=== PATIENT | female | born 1930 | race Caucasian/White ===

== ENCOUNTER 2016-08-16 09:45 | Inpatient (IN) | payer OTHER, MEDICAID ==
[~2016-08-16] VITALS: Ht 154.9 cm; Wt 77.1 kg
[2016-08-16 09:45] VITALS: BP 214/84; PULSE 87; RESP 20; TEMP 97.2; O2SAT 97
--- NOTE | 2016-08-16 09:50 | NUR ---
Pt placed to ER bed 03 and to gown. Pt report given to JAIME Mcarthur.
--- NOTE | 2016-08-16 09:50 | NUR ---
According to daughter, pt has been auditory/visual hallucinating past few days, lives at home. Denies fever, +headache. Heart transplant 4 months ago. Addendum: 08/16/16 at 1021 by SDEDSTC Not a heart transplant, heart valve replacement
--- NOTE | 2016-08-16 09:55 | NUR ---
Dr. Ayala at bedside to assess pt.
[2016-08-16] MEDS ORDERED: METOPROLOL TARTRATE 25 MG TABLET ONE (10:13)
[2016-08-16] MEDS ORDERED: METOPROLOL SUCCINATE 50 MG TAB.SR.24H (TOPROL XL) PO ONE (10:15)
[2016-08-16] MEDS ORDERED: ASPI-1063 PO (10:21)
[2016-08-16] MEDS ORDERED: LEVE500T13 PO (10:21)
[2016-08-16] MEDS ORDERED: DULO60CA41 PO (10:21)
[2016-08-16] MEDS ORDERED: TRAM50TA92 PO (10:21)
[2016-08-16] MEDS ORDERED: LIP20 PO (10:21)
[2016-08-16] MEDS ORDERED: MECL12.584 PO (10:21)
[2016-08-16] MEDS ORDERED: BENA10TA2 PO (10:21)
[2016-08-16] MEDS ORDERED: LYR50 PO (10:21)
[2016-08-16] MEDS ORDERED: METO-442 PO (10:21)
[2016-08-16] MEDS ORDERED: HYDR-1189 PO (10:21)
[2016-08-16] MEDS ORDERED: TYC3 PO (10:21)
--- NOTE | 2016-08-16 10:21 | NUR ---
Medication reconciliation completed as per list provided by daughter.
--- NOTE | 2016-08-16 10:22 | NUR ---
Phleb at bedside for blood draw using 2 pt idenitifers
[2016-08-16 10:41] LABS: BASOPHILS % (AUTO) 0.4 % (0.0-2.0); EOSINOPHILS % (AUTO) 0.5 % (0.0-4.0); HEMATOCRIT 34.3 % (36-48); HEMOGLOBIN 11.4 g/dL (12.0-16.0); LYMPHOCYTES # (AUTO) 1.7 K/uL (1.0-5.5); LYMPHOCYTES % (AUTO) 32.2 % (20.5-51.5); MEAN CORPUSCULAR HEMOGLOBIN 29 pg (27-31); MEAN CORPUSCULAR HGB CONC 33 % (32-36); MEAN CORPUSCULAR VOLUME 86 fL (79.0-98.0); MONOCYTES # (AUTO) 0.2 K/uL (0.0-1.0); MONOCYTES % (AUTO) 4.5 % (1.7-9.3); NEUTROPHILS # (AUTO) 3.3 K/uL (1.8-7.7); NEUTROPHILS % (AUTO) 62.4 % (40.0-70.0); PLATELET COUNT (AUTO) 139 K/uL (130-430); RED BLOOD CELL COUNT(AUTO) 3.98 MIL/uL (4.2-6.2); RED CELL DISTRIBUTION WIDTH 12.4 % (9.0-15.0); WHITE BLOOD COUNT (AUTO) 5.2 K/uL (4.8-10.8)
--- NOTE | 2016-08-16 10:45 | NUR ---
Back from CT via jasmina pt tolerated well.
[2016-08-16 10:55] LABS: PROTHROMBIN TIME 10.9 SECS (9.5-12.5)
[2016-08-16 10:58] LABS: ANION GAP 2 (5-15); CALCIUM 9.7 mg/dL (8.4-11.0); CHLORIDE 108 mmol/L (98-107); CREATININE 0.76 mg/dL (0.55-1.30); GLUCOSE 186 mg/dL (70-99); SODIUM SERUM 142 mmol/L (136-145); UREA NITROGEN, BLOOD 26 mg/dL (8-21)
[2016-08-16 11:03] LABS: ALANINE AMINOTRANSFERASE 49 U/L (12-78); ALBUMIN 3.3 g/dL (3.4-4.8); ASPARTATE AMINOTRANSFERASE 30 U/L (10-37); TOTAL BILIRUBIN 0.4 mg/dL (0.0-1.0); TOTAL PROTEIN, SERUM 7.2 g/dL (6.4-8.3)
--- NOTE | 2016-08-16 11:15 | NUR ---
# 14 FR In and Out catheter with use of sterile technique. Immediate return of 125 ml clear yellow urine noted. Urine sample collected and sent to lab. Pt tolerated procedure well. Patient unable to toilet self at this time.
[2016-08-16 11:45] LABS: BILIRUBIN,URINE NEGATIVE (NEGATIVE); BLOOD, URINE NEGATIVE (NEGATIVE); CLARITY/URINE SL HAZY (CLEAR); COLOR,URINE YELLOW (YELLOW); GLUCOSE,URINE NEGATIVE (NEGATIVE); KETONES,URINE TRACE (NEGATIVE); LEUKOCYTE ESTERASE ,URINE NEGATIVE (NEGATIVE); NITRITE, URINE NEGATIVE (NEGATIVE); PH,URINE 6.5 (5.0-8.0); PROTEIN URINE 1+ (NEGATIVE); UROBILINOGEN,URINE 0.2 (0.2-1.0)
[2016-08-16 11:59] LABS: BACTERIA,URINE RARE /HPF (None Seen); MUCUS,URINE 1+ /LPF (None Seen); RBC,URINE 0-3 /HPF (0-3); WBC,URINE 0-3 /HPF (0-3)
--- NOTE | 2016-08-16 12:12 | NUR ---
Patient will be admitted to care of Dr. Piña. Admitted to tele unit. Will go to room 132-A. Summary report printed. Report given to RN at bedside. Transfer to tele via ACLS protocol. Licensed nurse present. IV present no signs or symptoms of infiltration.
[2016-08-16] MEDS ORDERED: HYDROcodone/ACETAMIN 5-325 MG TAB (NORCO/ VICODIN) PO PRN (12:15)
--- NOTE | 2016-08-16 12:29 | NUR ---
Admission Note Received patient from ER with diagnosis of Metabolic Encephalopathy. Initial Plan of Care discussed-patient verbalized understanding. Family at bedside. Oriented to room, call light, pain management and safety.
[2016-08-16 12:30] VITALS: BP 143/105; PULSE 75; RESP 19; TEMP 98; O2SAT 97
[2016-08-16 12:59] VITALS: BP 143/105; PULSE 75; RESP 18; TEMP 98; O2SAT 97
[2016-08-16] MEDS ORDERED: DOCUSATE SODIUM 100 MG CAPSULE PO PRN (15:45)
[2016-08-16] MEDS ORDERED: ONDANSETRON HCL 4 MG/2 ML VIAL IVP PRN (15:45)
[2016-08-16] MEDS ORDERED: ACETAMINOPHEN 325 MG TABLET PO PRN (15:45)
[2016-08-16] MEDS ORDERED: cloNIDine HCL 0.1 MG TABLET PO PRN (15:45)
[2016-08-16] MEDS ORDERED: MAGNESIUM SULFATE 50 ML IV PRN (15:45)
[2016-08-16] MEDS ORDERED: POTASSIUM CHLORIDE 10 MEQ TAB.PRT.SR PO PRN (15:45)
[2016-08-16] MEDS ORDERED: MORPHINE 2 MG/ML INJ. SYRINGE IVP PRN (15:45)
[2016-08-16 16:00] VITALS: BP 166/79; PULSE 70; RESP 19; TEMP 97.4; O2SAT 97
--- NOTE | 2016-08-16 16:00 | NUR ---
Patient IV started #22 guage right upper arm, and flushes without resistance. Theo Huff RN
[2016-08-16] MEDS ORDERED: HYDROCHLOROTHIAZIDE 25 MG TABLET (HCTZ) PO ONE (16:45)
[2016-08-16] MEDS: PREGABALIN 25 MG CAPSULE (LYRICA) PO SCH ×2 (19:26→20:20)
[2016-08-16] MEDS: traMADol HCL HCL 50 MG TABLET (ULTRAM) PO SCH ×2 (19:27→21:00)
[2016-08-16] MEDS: NACL 0.9% 1,000 ML IV SCH (19:28)
--- NOTE | 2016-08-16 19:40 | NUR ---
NOTES; SEEN PT IN BED. AWAKE, ORIENTED TO NAME ONLY. NO ACUTE DISTRESS NOTED. BP FOUND TO FE HIGH, BP 183/69, HR 75. WILL MEDICATE PT WITH SCHEDULED LOPRESSOR. PT IS AFEBRILE. ORDERED IVF INFUSING WELL ON THE RT UPPER ARM, PATENT. NO SIGNS OF INFECTION OR INFILTRATION NOTED. BRUISE TO THE LEFT ARM NOTED. FAMILY AT BEDSIDE WITH GOOD SUPPORT. PT DENIES ANY PAIN AT THIS TIME. INSTRUCTED PT OM THE USE OF CALL LIGHT. PT NODDED YES;. BED LOCKED AND IN LOW POSITION, SIDE RAILS UP X3, BED ALARM ON. CALL LIGHT AND BEDSIDE TABLE WITHIN REACH. DIRECT OBSERVER AT BEDSIDE AT ALL TIMES, WILL CONTINUE TO MONITOR.
[2016-08-16] MEDS: METOPROLOL TARTRATE 50 MG TABLET PO SCH (20:19)
[2016-08-16] MEDS: HEPARIN SODIUM,PORCINE 5000 UNITS/ML VIAL SUBCUT SCH (20:19)
[2016-08-16] MEDS: ZOLPIDEM TARTRATE 5 MG TABLET PO PRN (20:20)
[2016-08-16] MEDS: levETIRAcetam 500 MG TABLET PO SCH (20:20)
--- NOTE | 2016-08-16 20:25 | NUR ---
NOTES; SCHEDULED LOPRESSOR 50MG PO ADMINISTERED ALONG WITH OTHER SCHEDULED PO MEDICATION AND AMBIEN 10MG PO FOR INSOMNIA.
--- NOTE | 2016-08-16 21:30 | NUR ---
NOTES; RECHECKED BP 140/79, HR 74. WILL CONTINUE TO MONITOR.
--- NOTE | 2016-08-16 22:30 | NUR ---
NOTES; ASSISTED TO BEDSIDE COMMODE. PT VOIDED IN BED AND ALL THE WAY TO BEDSIDE COMMODE. ASSISTED BACK TO BED. GOWN AND BED LINEN CHANGED. RADHA CARE PROVIDED. WILL CONTINUE TO MONITOR. DIRECT OBSERVER AT BEDSIDE.
[2016-08-17 00:14] VITALS: BP 145/77; PULSE 72; RESP 18; TEMP 97.2; O2SAT 90
--- NOTE | 2016-08-17 00:52 | NUR ---
NOTES; APPEARED TO BE SLEEPING, YES CLOSED. RESPIRATION EVEN AN UNLABORED. SAFETY MEASURES IN PROGRESS. WILL CONTINUE TO MONITOR.
--- NOTE | 2016-08-17 01:30 | NUR ---
NOTES; INCONTINENT OF URINE. PERICARE PROVIDED. DENIES ANY PAIN AT THIS TIME. SAFETY MEASURES IN PROGRESS. DIRECT OBSERVER AT BEDSIDE.
--- NOTE | 2016-08-17 03:30 | NUR ---
NOTES; APPEARED TO BE SLEEPING, EYES CLOSED. RESPIRATION EVEN AN UNLABORED. SAFETY MEASURES IN PROGRESS. WILL CONTINUE TO MONITOR.
[2016-08-17 04:12] VITALS: BP 154/59; PULSE 84; RESP 18; TEMP 97.2; O2SAT 95
--- NOTE | 2016-08-17 05:00 | NUR ---
NOTES; INCONTINENT OF URINE. RADHA CARE PROVIDED. DENIES ANY PAIN AT THIS TIME. SAFETY MEASURES IN PROGRESS. DIRECT OBSERVER AT BEDSIDE.
[2016-08-17] MEDS: NACL 0.9% 1,000 ML IV SCH ×2 (05:34→20:33)
[2016-08-17 05:52] LABS: CHLORIDE 107 mmol/L (98-107); CREATININE 0.67 mg/dL (0.55-1.30); GLUCOSE 151 mg/dL (70-99); POTASSIUM 3.7 mmol/L (3.5-5.1); SODIUM SERUM 140 mmol/L (136-145); UREA NITROGEN, BLOOD 18 mg/dL (8-21)
[2016-08-17 06:07] LABS: BASOPHILS % (AUTO) 0.3 % (0.0-2.0); EOSINOPHILS # (AUTO) 0.1 K/uL (0.0-0.4); EOSINOPHILS % (AUTO) 1.8 % (0.0-4.0); HEMATOCRIT 32.2 % (36-48); HEMOGLOBIN 10.4 g/dL (12.0-16.0); LYMPHOCYTES # (AUTO) 2.1 K/uL (1.0-5.5); LYMPHOCYTES % (AUTO) 51.7 % (20.5-51.5); MEAN CORPUSCULAR HEMOGLOBIN 28 pg (27-31); MEAN CORPUSCULAR HGB CONC 33 % (32-36); MEAN CORPUSCULAR VOLUME 87 fL (79.0-98.0); MONOCYTES # (AUTO) 0.3 K/uL (0.0-1.0); MONOCYTES % (AUTO) 6.9 % (1.7-9.3); NEUTROPHILS # (AUTO) 1.7 K/uL (1.8-7.7); NEUTROPHILS % (AUTO) 39.3 % (40.0-70.0); PLATELET COUNT (AUTO) 133 K/uL (130-430); RED BLOOD CELL COUNT(AUTO) 3.68 MIL/uL (4.2-6.2); RED CELL DISTRIBUTION WIDTH 12.4 % (9.0-15.0); WHITE BLOOD COUNT (AUTO) 4.2 K/uL (4.8-10.8)
[2016-08-17 06:23] LABS: ANION GAP < 3 (5-15)
--- NOTE | 2016-08-17 06:53 | NUR ---
NOTES; APPEARED TO BE SLEEPING. EYES CLOSED. EASILY AROUSED. NO ACUTE DISTRESS NOTED. IVF INFUSING WELL. ALL NEEDS ATTENDED. SAFETY MEASURES IN PROGRESS. DIRECT OBSERVER AT BEDSIDE.
--- NOTE | 2016-08-17 07:00 | NUR ---
NOTES; AWAKE, NAGAT SHAREPOINT ANALYST ASSISTED WITH BED PAIN. VOIDED FREELY.
--- NOTE | 2016-08-17 07:14 | NUR ---
NOTES; PT C/O 710 LEFT RIB PAIN. NORCO 1 TAB PO ADMINISTERED FOR 10 PAIN. WILL ENDORSE TO IN COMING NURSE.
--- NOTE | 2016-08-17 07:34 | NUR ---
CALLED ATTENDING MD DR LEWIS, DR PURCELL ENROBING MACHINE CORDER, RE: CHANGE OF CONDITION. SPOKE TO YELENA
--- NOTE | 2016-08-17 07:37 | NUR ---
NOTES; DR LEWIS CALLED TTO INFORM ABOUT PT SUDDEN C/O LEFT RIB, UNDER BREAST PAIN. DR PURCELL FIRE CHIEF FOR . SPOKE WITH DR. PURCELL AND INFORMED ABOUT PT C/O PAIN. DR. PURCELL GAVE ORDERS FOR MORPHINE 2MG IV FOR 7-10 PAIN LEVEL AND NORCO 5-325MG 1 TAB PO FOR 4-6 PAIN LEVEL. UNABLE TO PLACE ORDERS BECAUSE, DR PURCELL DOES NOT HAVE PRIVILEGES IN THIS HOSPITAL. CHARGE NURSE AND SHAISTA VASQUEZ INFORMED.
--- NOTE | 2016-08-17 07:41 | NUR ---
CALLED DR LEWIS AGAIN , RE: DR PURCELL DOES NOT HAVE PRIVILEGES . SPOKE TO YELENA
[2016-08-17 07:54] VITALS: BP 179/90; PULSE 75; RESP 18; TEMP 97.8; O2SAT 92
--- NOTE | 2016-08-17 08:00 | NUR ---
AM INITIAL NOTES PT AAOX3 PORTUGUESE SPEAKING ONLY WITH EPISODES OF CONFUSION AND FORGETFULNESS. COMPLAINTS OF LEFT UPPER ABDOMINAL PAIN. PATIENT WAS ALREADY MEDICATED WITH NORCO. NO SOB, DIFFICULTY BREATHING OR DISTRESS NOTED. SACK REPAIRER IN PLACE. IV TO LEFT UPPER ARM CAME OFF. NEW IV STARTED TO RIGHT INDEX FINGER #22G. SAFETY AND FALL PRECAUTIONS ENFORCED WITH BED ALARM ARMED AND CLOSE TO NURSE'S STATION. DIRECT OBSERVER INSIDE ROOM. WILL MONITOR.
--- NOTE | 2016-08-17 08:05 | NUR ---
DR. JOSHUA HARDY DOING ROUNDS AND ASSESSED PATIENT.
[2016-08-17] MEDS ORDERED: BENAZEPRIL HCL 10 MG TABLET (LOTENSIN) PO SCH (09:00)
[2016-08-17] MEDS ORDERED: HYDROCHLOROTHIAZIDE 25 MG TABLET (HCTZ) PO SCH (09:00)
[2016-08-17] MEDS: ATORVASTATIN 20 MG TABLET PO SCH (09:30)
[2016-08-17] MEDS: ASPIRIN 81 MG TABLET(ECOTRIN) PO SCH (09:31)
[2016-08-17] MEDS: DULoxetine HCL 30 MG CAPSULE.DR (CYMBALTA) PO SCH (09:31)
[2016-08-17] MEDS: PREGABALIN 25 MG CAPSULE (LYRICA) PO SCH ×3 (09:31→20:26)
[2016-08-17] MEDS: levETIRAcetam 500 MG TABLET PO SCH ×2 (09:31→20:26)
[2016-08-17] MEDS: BENAZEPRIL HCL 10 MG TABLET (LOTENSIN) PO SCH ×2 (09:32→20:27)
[2016-08-17] MEDS: traMADol HCL HCL 50 MG TABLET (ULTRAM) PO SCH ×3 (09:34→20:26)
[2016-08-17] MEDS: HYDROCHLOROTHIAZIDE 25 MG TABLET (HCTZ) PO SCH (09:36)
[2016-08-17] MEDS: METOPROLOL TARTRATE 50 MG TABLET PO SCH ×2 (09:37→20:26)
[2016-08-17] MEDS: HEPARIN SODIUM,PORCINE 5000 UNITS/ML VIAL SUBCUT SCH ×2 (09:40→20:29)
--- NOTE | 2016-08-17 09:50 | NUR ---
DR. SUDHA HARDY INSIDE ROOM ASSESSING PATIENT. FAMILY AT BEDSIDE.
--- NOTE | 2016-08-17 09:57 | NUR ---
NEURO CONSULT Spoke with Irish regarding request for consultation with Dr. Montalvo ([phone]) for reason: worsening confusion, dementia.
--- NOTE | 2016-08-17 10:00 | NUR ---
ROUNDS PT AWAKE RESTING IN BED WITH FAMILY AT BEDSIDE. NO COMPLAINTS OF PAIN OR DISCOMFORT AT THIS TIME. NO DISTRESS NOTED. AM CARE AND BED BATH DONE. KEPT PT COMFORTABLE. WILL CONTINUE TO MONITOR. DIRECT OBSERVER INSIDE ROOM.
--- NOTE | 2016-08-17 10:03 | NUR ---
CALLED PSYCH CONSULT TO DR RAYA, DR HAQ LARRIMAN, RE: HALLUCINATIONS. SPOKE TO HUSSAIN
--- NOTE | 2016-08-17 11:34 | NUR ---
DR. XIOMARA HARDY INSIDE ROOM ASSESSING PATIENT. AT BEDSIDE.
--- NOTE | 2016-08-17 12:00 | NUR ---
LUNCH PT EATING LUNCH. NO COMPLAINTS OF PAIN OR DISCOMFORT. NO DISTRESS NOTED. DIRECT OBSERVER INSIDE ROOM.
[2016-08-17 12:45] VITALS: BP 128/67; PULSE 92; RESP 20; TEMP 97.2; O2SAT 95
--- NOTE | 2016-08-17 13:37 | NUR ---
PT HAVING EEG AT THIS TIME.
--- NOTE | 2016-08-17 14:45 | NUR ---
ROUNDS PT ASLEEP. NO SIGNS OF FACIAL GRIMACING FOR PAIN OR DISCOMFORT. NO DISTRESS NOTED. WILL CONTINUE TO MONITOR. DIRECT OBSERVER INSIDE ROOM.
--- NOTE | 2016-08-17 16:07 | NUR ---
Nutrition Update Rick Scale 18 noted Pt was admitted for metabolic encephalopathy Diet: cardiac BMI: 32.8 kg/m2 RD to follow up per nutrition care standards.
[2016-08-17 16:20] VITALS: BP 150/67; PULSE 71; RESP 20; TEMP 98.1; O2SAT 91
--- NOTE | 2016-08-17 17:00 | NUR ---
ROUNDS PT AWAKE WITH NO COMPLAINTS OF PAIN OR DISCOMFORT. NO DISTRESS NOTED. ASSISTED TO BSC. WEAKNESS TO BILATERAL LOWER EXTREMITIES NOTED. BACK TO BED AND KEPT COMFORTABLE. SAFETY AND FALL RISK PRECAUTIONS ENFORCED. SEIZURE PRECAUTIONS ENFORCED. DIRECT OBSERVER INSIDE ROOM. WILL CONTINUE TO MONITOR.
--- NOTE | 2016-08-17 18:30 | NUR ---
CLOSING NOTES PT AWAKE RESTING IN BED WITH AT BEDSIDE. PT HAS EPISODES OF CONFUSION AND TRIES TO GET OUT OF BED WHEN SHE WANTS TO URINATE AND USE BSC. NO COMPLAINTS OF PAIN OR DISCOMFORT. NO DISTRESS NOTED. WILL ENDORSE CARE TO INCOMING NURSE. WILL ENDORSE CARE TO INCOMING NURSE.
[2016-08-17 19:32] VITALS: BP 128/62; PULSE 74; RESP 18; TEMP 99.2; O2SAT 93
--- NOTE | 2016-08-17 19:35 | NUR ---
NOTES; SEEN PT IN BED. AWAKE, ORIENTED TO NAME ONLY. CONFUSED. REORIENTED PT TO PLACE, TIME, ROOM AND SURROUNDINGS. NO ACUTE DISTRESS NOTED. VITAL SIGNS STABLE, AFEBRILE. ORDERED IVF INFUSING WELL ON THE RT INDEX FINGER, PATENT. NO SIGNS OF INFECTION OR INFILTRATION NOTED. BRUISE TO THE LEFT ARM NOTED. FAMILY AT BEDSIDE WITH GOOD SUPPORT. PT DENIES ANY PAIN AT THIS TIME. INSTRUCTED PT ON THE USE OF CALL LIGHT. PT NODDED YES; BED LOCKED AND IN LOW POSITION, SIDE RAILS UP X3, BED ALARM ON. CALL LIGHT AND BEDSIDE TABLE WITHIN REACH. DIRECT OBSERVER AT BEDSIDE AT ALL TIMES, WILL CONTINUE TO MONITOR.
--- NOTE | 2016-08-17 19:45 | NUR ---
NOTES; PT IS TAKEN TO RADIOLOGY FOR CT SCAN. PT TRANSPORTED VIA BED DUE TO WEAKNESS. PT WAS ACCOMPANIED BY LOCO Escobedo RN, AND SUPERVISOR PHOTOCOMPOSITION.
--- NOTE | 2016-08-17 20:06 | NUR ---
Notes; Pt is back from radiology. Pt is in stable condition.
--- NOTE | 2016-08-17 20:39 | NUR ---
NOTES; SCHEDULED PO MEDICATION ADMINISTERED. PT TOLERATED MEDS WELL. WILL CONTINUE TO MONITOR.
--- NOTE | 2016-08-17 22:02 | NUR ---
PSYCH CONSULT FOLLOW UP 2ND CALL FOR CONSULT W/ DR RAYA WAS CALLED, RE HALLUCINATION MIGUE MENSAH, "DR JOE IS O/C"
[2016-08-17] MEDS: ZOLPIDEM TARTRATE 5 MG TABLET PO PRN (22:19)
--- NOTE | 2016-08-17 22:20 | NUR ---
NOTES; AMBIEN 10MG PO ADMINISTERED FOR INSOMNIA.
--- NOTE | 2016-08-17 22:22 | NUR ---
NOTES; SPOKE WITH DR. HOLLY HOME ENERGY CONSULTANT SUPERVISOR FOR [employer] REGARDING PSYCH CONSULT. UPDATED DR HOLLY WITH PT DX AND STATUS. DR HOLLY STATED " OK WE WILL SEE PT TOMORROW". CHARGE NURSE AND RN NOTIFIED.
[2016-08-18] VITALS (7 sets, daily range): BP systolic 128–170; BP diastolic 54–86; PULSE 68–80; RESP 16–20; TEMP 96.8–97.9; O2SAT 92–100
--- NOTE | 2016-08-18 00:10 | NUR ---
NOTES; PT IS CONFUSED, PT STATED SHE WANT TO GO TO HER ROOM DOWNSTAIRS. REORIENTED PT TO PLACE,DAY,TIME AND SURROUNDING. PT STATED " I HAVE NOT EATEN ALL DAY" 1/2 SANDWICH AND ORANGE JUICE PROVIDED. PT ATE 100%. NO APPARENT DISTRESS NOTED. SAFETY MEASURES IN PROGRESS. DIRECT OBSERVER REMAIN AT BEDSIDE AT ALL TIMES.
--- NOTE | 2016-08-18 01:30 | NUR ---
NOTES; APPEARED TO BE SLEEPING, EYES CLOSED. EASILY AROUSED. NO ACUTE DISTRESS OR SEIZURE ACTIVITY NOTED. DIRECT OBSERVER REMAIN AT BEDSIDE.
--- NOTE | 2016-08-18 03:30 | NUR ---
NOTES; APPEARED TO BE SLEEPING, EYES CLOSED. EASILY AROUSED. NO ACUTE DISTRESS OR SEIZURE ACTIVITY NOTED. DIRECT OBSERVER REMAIN AT BEDSIDE.
--- NOTE | 2016-08-18 05:00 | NUR ---
NOTES; APPEARED TO BE SLEEPING, EYES CLOSED. EASILY AROUSED. NO ACUTE DISTRESS OR SEIZURE ACTIVITY NOTED. DIRECT OBSERVER REMAIN AT BEDSIDE.
[2016-08-18 06:39] LABS: BASOPHILS % (AUTO) 0.4 % (0.0-2.0); EOSINOPHILS # (AUTO) 0.1 K/uL (0.0-0.4); EOSINOPHILS % (AUTO) 2.5 % (0.0-4.0); HEMATOCRIT 32.3 % (36-48); HEMOGLOBIN 10.4 g/dL (12.0-16.0); LYMPHOCYTES # (AUTO) 2.4 K/uL (1.0-5.5); MEAN CORPUSCULAR HEMOGLOBIN 28 pg (27-31); MEAN CORPUSCULAR HGB CONC 32 % (32-36); MEAN CORPUSCULAR VOLUME 86 fL (79.0-98.0); MONOCYTES # (AUTO) 0.3 K/uL (0.0-1.0); MONOCYTES % (AUTO) 6.5 % (1.7-9.3); NEUTROPHILS # (AUTO) 2.1 K/uL (1.8-7.7); NEUTROPHILS % (AUTO) 42.6 % (40.0-70.0); PLATELET COUNT (AUTO) 144 K/uL (130-430); RED BLOOD CELL COUNT(AUTO) 3.74 MIL/uL (4.2-6.2); RED CELL DISTRIBUTION WIDTH 12.2 % (9.0-15.0); WHITE BLOOD COUNT (AUTO) 4.9 K/uL (4.8-10.8)
[2016-08-18 07:29] LABS: ANION GAP 3 (5-15); CALCIUM 8.7 mg/dL (8.4-11.0); CHLORIDE 103 mmol/L (98-107); CREATININE 0.81 mg/dL (0.55-1.30); GLUCOSE 144 mg/dL (70-99); POTASSIUM 4.1 mmol/L (3.5-5.1); SODIUM SERUM 138 mmol/L (136-145); UREA NITROGEN, BLOOD 22 mg/dL (8-21)
[2016-08-18 07:30] LABS: THYROID STIMULATING HORMONE 1.61 uIu/mL (0.34-4.82)
--- NOTE | 2016-08-18 08:00 | NUR ---
AM INITIAL NOTES PT AAOX3 HUNGARIAN SPEAKING BUT UNDERSTANDS AND SPEAKS LITTLE ROMANSH WITH EPISODES OF CONFUSION AND FORGETFULNESS. NO COMPLAINTS OF PAIN OR DISCOMFORT AT THIS TIME. NO SOB, DIFFICULTY BREATHING OR DISTRESS NOTED. BURR GRINDER IN PLACE. SAFETY AND FALL PRECAUTIONS ENFORCED WITH BED ALARM ARMED AND CLOSE TO NURSE'S STATION. DIRECT OBSERVER INSIDE ROOM. WILL MONITOR.
--- NOTE | 2016-08-18 08:42 | NUR ---
DR. SUDHA HARDY INSIDE ROOM DOING ROUNDS
[2016-08-18] MEDS: ASPIRIN 81 MG TABLET(ECOTRIN) PO SCH (08:53)
[2016-08-18] MEDS: levETIRAcetam 500 MG TABLET PO SCH ×2 (08:53→20:55)
[2016-08-18] MEDS: ATORVASTATIN 20 MG TABLET PO SCH (08:53)
[2016-08-18] MEDS: DULoxetine HCL 30 MG CAPSULE.DR (CYMBALTA) PO SCH (08:53)
[2016-08-18] MEDS: METOPROLOL TARTRATE 50 MG TABLET PO SCH ×2 (08:54→20:57)
[2016-08-18] MEDS: PREGABALIN 25 MG CAPSULE (LYRICA) PO SCH ×3 (08:54→20:55)
[2016-08-18] MEDS: HYDROCHLOROTHIAZIDE 25 MG TABLET (HCTZ) PO SCH (08:55)
[2016-08-18] MEDS: BENAZEPRIL HCL 10 MG TABLET (LOTENSIN) PO SCH ×2 (08:55→20:56)
[2016-08-18] MEDS: traMADol HCL HCL 50 MG TABLET (ULTRAM) PO SCH ×3 (08:55→20:57)
[2016-08-18] MEDS: HEPARIN SODIUM,PORCINE 5000 UNITS/ML VIAL SUBCUT SCH ×2 (08:57→20:59)
--- NOTE | 2016-08-18 09:10 | NUR ---
DR. ELVER HARDY INSIDE ROOM ASSESSING PATIENT.
--- NOTE | 2016-08-18 10:00 | NUR ---
ROUNDS PT ASLEEP. NO SIGNS OF FACIAL GRIMACING FOR PAIN OR DISCOMFORT. NO DISTRESS NOTED. AT BEDSIDE. DIRECT OBSERVER INSIDE ROOM. WILL MONITOR.
--- NOTE | 2016-08-18 12:00 | NUR ---
Pain Pt complaints of abdominal pain /10 and wants to be medicated. Will medicate with Tylenol #3 with Codeine. No distress noted.
[2016-08-18] MEDS: ACETAMINOPHEN/CODEINE 300 MG-30 MG TABLET PO PRN (12:18)
[2016-08-18] MEDS: LORazepam 2 MG/ML VIAL IVP PRN ×2 (14:04→22:41)
--- NOTE | 2016-08-18 14:10 | NUR ---
Agitation Pt awake, restless and agitated while having conversation with . No complaints of pain or discomfort. No distress noted. Pt medicated with Ativan by RN. Kept pt comfortable. Will monitor. Direct Observer inside room.
--- NOTE | 2016-08-18 15:00 | NUR ---
ASLEEP PT SOUND ASLEEP. NO DISTRESS NOTED. DIRECT OBSERVER INSIDE ROOM. WILL CONTINUE TO MONITOR.
--- NOTE | 2016-08-18 16:03 | NUR ---
ROUNDS Pt sound asleep. No signs of distress noted. Will continue to monitor. Direct Observer inside room.
--- NOTE | 2016-08-18 17:00 | NUR ---
ASLEEP PT SOUND ASLEEP. NO SIGNS OF FACIAL GRIMACING FOR PAIN OR DISCOMFORT. NO DISTRESS NOTED. WILL CONTINUE TO MONITOR. DIRECT OBSERVER INSIDE ROOM.
--- NOTE | 2016-08-18 18:30 | NUR ---
CLOSING NOTES PT SOUND ASLEEP BUT AWAKENED TO EAT DINNER. PT WOKE UP BUT REFUSED TO EAT AND SAID SHE WANTS TO SLEEP. NO DISTRESS NOTED. DIRECT OBSERVER INSIDE ROOM. WILL ENDORSE CARE TO INCOMING NURSE.
--- NOTE | 2016-08-18 19:30 | NUR ---
notes received the pt from the day nurse ,pt awake,but speaks yi and little finnish,daughter was call for consent for the MRI and will be in at 9am to sign the consent. monitor in place and shows SR iv to rt index finger intact,no redness or swelling noted. seizure and fall precautions in progress ,sitter at the bedside.call light within reach,safety measures in progress.continue to monitor.
--- NOTE | 2016-08-18 20:25 | NUR ---
notes blood transfusion completed,no adverse reaction noted. continue to monitor.
[2016-08-18] MEDS: risperiDONE 0.25 MG TABLET (RisperDAL) PO SCH (21:07)
--- NOTE | 2016-08-18 21:41 | NUR ---
pt resting,appears comfortable after being medicated for pain.continue to monitor ,sitter is at the bedside.
[2016-08-18] MEDS: ZOLPIDEM TARTRATE 5 MG TABLET PO PRN (22:11)
--- NOTE | 2016-08-18 22:16 | NUR ---
notes pt confused and thinks her daughter is in the other bed.pt reoriented to time and place.medication given for sleep.
--- NOTE | 2016-08-18 23:13 | NUR ---
notes pt sleeping.no distress noted,sitter remains at the bed side.
--- NOTE | 2016-08-19 | NUR ---
pt.assessed.pt.presents quiescent affect;calm,asleep.f/u post the administration of ativan:2mg ivp.call light w/in the pt's reach. Addendum: 08/19/16 at 0709 by Jaime Lao RN v/s assessed.values w/in normal limits.
[2016-08-19] MEDS: NACL 0.9% 1,000 ML IV SCH ×3 (00:57→15:21)
--- NOTE | 2016-08-19 01:26 | NUR ---
notes pt sleeping,no seizure activity noted ,call light within reach.sitter remains at the bedside.
--- NOTE | 2016-08-19 02:00 | NUR ---
pt.assessed.pt.presents quiescent affect;calm,asleep.iv fluids infusing.call ced w/in pt's reach.
--- NOTE | 2016-08-19 03:33 | NUR ---
notes pt remains asleep,sitter at the bed side.continue to monitor.
[2016-08-19 04:00] VITALS: BP 168/68; PULSE 86; RESP 16; TEMP 98.9; O2SAT 93
--- NOTE | 2016-08-19 04:00 | NUR ---
pt.assessed.pt.presents quiescent affect;calm,asleep.iv fluids infusing.call light w/in pt's reach. v/s assessed:values w/in normal limits.
--- NOTE | 2016-08-19 06:00 | NUR ---
pt.assessed.pt.presents quiescent affect;calm,asleep.iv fluids infusing.no discomfort/distress manifested. call light w/in pt's reach.
--- NOTE | 2016-08-19 06:05 | NUR ---
closing notes pt remain asleep awaken by the laborer shellfish processing so she can draw blood.will endorse the care of the pt to the day nurse.
[2016-08-19 07:23] LABS: ANION GAP 5 (5-15); CALCIUM 8.6 mg/dL (8.4-11.0); CHLORIDE 103 mmol/L (98-107); CREATININE 0.68 mg/dL (0.55-1.30); GLUCOSE 150 mg/dL (70-99); POTASSIUM 3.7 mmol/L (3.5-5.1); SODIUM SERUM 140 mmol/L (136-145); UREA NITROGEN, BLOOD 19 mg/dL (8-21)
[2016-08-19 07:29] LABS: BASOPHILS % (AUTO) 0.3 % (0.0-2.0); EOSINOPHILS # (AUTO) 0.1 K/uL (0.0-0.4); HEMATOCRIT 31.1 % (36-48); HEMOGLOBIN 10.6 g/dL (12.0-16.0); LYMPHOCYTES # (AUTO) 1.6 K/uL (1.0-5.5); LYMPHOCYTES % (AUTO) 34.9 % (20.5-51.5); MEAN CORPUSCULAR HEMOGLOBIN 30 pg (27-31); MEAN CORPUSCULAR HGB CONC 34 % (32-36); MEAN CORPUSCULAR VOLUME 87 fL (79.0-98.0); MONOCYTES # (AUTO) 0.3 K/uL (0.0-1.0); MONOCYTES % (AUTO) 6.1 % (1.7-9.3); NEUTROPHILS # (AUTO) 2.7 K/uL (1.8-7.7); NEUTROPHILS % (AUTO) 56.7 % (40.0-70.0); PLATELET COUNT (AUTO) 125 K/uL (130-430); RED CELL DISTRIBUTION WIDTH 12.2 % (9.0-15.0); WHITE BLOOD COUNT (AUTO) 4.7 K/uL (4.8-10.8)
--- NOTE | 2016-08-19 07:37 | NUR ---
AM ROUNDS: No s/s of distress noted. Will continue to monitor.
[2016-08-19 08:45] VITALS: BP 159/79; PULSE 89; RESP 20; TEMP 97.3; O2SAT 94
[2016-08-19] MEDS: DULoxetine HCL 30 MG CAPSULE.DR (CYMBALTA) PO SCH (08:59)
[2016-08-19] MEDS: traMADol HCL HCL 50 MG TABLET (ULTRAM) PO SCH ×3 (08:59→20:50)
[2016-08-19] MEDS: risperiDONE 0.25 MG TABLET (RisperDAL) PO SCH ×2 (08:59→20:51)
[2016-08-19] MEDS: PREGABALIN 25 MG CAPSULE (LYRICA) PO SCH ×3 (08:59→20:51)
[2016-08-19] MEDS: ASPIRIN 81 MG TABLET(ECOTRIN) PO SCH (08:59)
[2016-08-19] MEDS: HYDROCHLOROTHIAZIDE 25 MG TABLET (HCTZ) PO SCH (09:00)
[2016-08-19] MEDS: levETIRAcetam 500 MG TABLET PO SCH ×2 (09:00→20:50)
[2016-08-19] MEDS: BENAZEPRIL HCL 10 MG TABLET (LOTENSIN) PO SCH ×2 (09:01→20:51)
[2016-08-19] MEDS: ATORVASTATIN 20 MG TABLET PO SCH (09:01)
[2016-08-19] MEDS: METOPROLOL TARTRATE 50 MG TABLET PO SCH ×2 (09:01→20:52)
[2016-08-19] MEDS: HEPARIN SODIUM,PORCINE 5000 UNITS/ML VIAL SUBCUT SCH ×2 (09:02→20:57)
--- NOTE | 2016-08-19 10:12 | NUR ---
PATIENT RESTING: Patient resting quietly. No acute distress noted. Vital signs within normal range.
[2016-08-19 11:25] VITALS: BP 160/78; PULSE 81; RESP 18; TEMP 97.6; O2SAT 98
--- NOTE | 2016-08-19 12:10 | NUR ---
RICK SCALE EVALUATION: Patient evaluated for a low Rick score of 12. Patient was awake, alert, oriented and received in a [place] bed with an Atmos-Air 9000 mattress. Patient is unable to turn independently. Skin is fair. Recommend encourage and assist patient as needed with repositioning every 2 hours with pillow support and off-load pressure areas with pillows for pressure re-distribution. Elevate, off-load and float bilateral heels with pillows. Use moisture barrier cream on buttocks and other moisture susceptible areas QID and as needed for soiling. Perform skin care and monitor skin integrity Q shift. Place patient on a low air-loss mattress.
--- NOTE | 2016-08-19 12:18 | NUR ---
PATIENT RESTING: Patient resting quietly. No acute distress noted. Vital signs within normal range.
[2016-08-19] MEDS: LORazepam 2 MG/ML VIAL IVP PRN (13:55)
--- NOTE | 2016-08-19 14:09 | NUR ---
PATIENT RESTING: Patient resting quietly. No acute distress noted. Vital signs within normal range.
--- NOTE | 2016-08-19 16:08 | NUR ---
PATIENT RESTING: Patient resting quietly. No acute distress noted. Vital signs within normal range.
[2016-08-19 16:26] VITALS: BP 137/59; PULSE 78; RESP 18; TEMP 99; O2SAT 93
--- NOTE | 2016-08-19 18:22 | NUR ---
CLOSING NOTE: All needs met. No change in assessment. Will endorse to NOC shift nurse.
--- NOTE | 2016-08-19 19:30 | NUR ---
NOTES RECEIVED THE PT FROM THE DAY NURSE.PT A/A/OX3 JERONIMO SPEAKING ONLY.SEIZURE AND FALL PRECAUTIONS IN EFFECT.IV TO RT INDEX FINGER INTACT.MONITOR IN PLACE BED ALARM IS ON SITTER AT THE BEDSIDE.CALL LIGHT WITHIN REACH SAFETY MEASURES IN PROGRESS. CONTINUE TO MONITOR.
[2016-08-19 20:08] VITALS: BP 150/61; PULSE 93; RESP 16; TEMP 97.4; O2SAT 93
[2016-08-19 20:11] VITALS: BP 150/61; PULSE 81; RESP 16; TEMP 97.4; O2SAT 93
--- NOTE | 2016-08-19 21:54 | NUR ---
notes family are at the bedside and will have his brother fax us the information about her heart valve surgery at [facility] in the am,
--- NOTE | 2016-08-19 23:19 | NUR ---
notes pt sleeping no distress noted sitter at the bedside.
[2016-08-20 00:11] VITALS: BP 166/75; PULSE 77; RESP 18; TEMP 97.7; O2SAT 93
--- NOTE | 2016-08-20 01:30 | NUR ---
notes pt cleaned and repositioned with pillow support.sitter remains at the bedside.
--- NOTE | 2016-08-20 01:43 | NUR ---
notes pt sleeping,no distress noted.continue to monitor.
--- NOTE | 2016-08-20 03:26 | NUR ---
notes pt awaken ,cleaned and repositioned.no seizure activity noted.continue to monitor.sitter remains at the bedside.
[2016-08-20 04:39] VITALS: BP 165/74; PULSE 77; RESP 20; TEMP 98.6; O2SAT 93
--- NOTE | 2016-08-20 05:24 | NUR ---
notes pt sleeping,no distress noted.sitter at the bedside.
[2016-08-20 06:06] LABS: FOLATE (FOLIC ACID) 15.9 ng/mL (>3.0)
--- NOTE | 2016-08-20 06:24 | NUR ---
closing notes pt awake,no distress noted.will endorse the care of the pt to the day nurse.
[2016-08-20] MEDS: NACL 0.9% 1,000 ML IV SCH (06:47)
[2016-08-20 07:23] LABS: BASOPHILS % (AUTO) 0.2 % (0.0-2.0); EOSINOPHILS # (AUTO) 0.1 K/uL (0.0-0.4); EOSINOPHILS % (AUTO) 2.5 % (0.0-4.0); HEMATOCRIT 33.5 % (36-48); HEMOGLOBIN 11.5 g/dL (12.0-16.0); LYMPHOCYTES # (AUTO) 1.7 K/uL (1.0-5.5); LYMPHOCYTES % (AUTO) 32.3 % (20.5-51.5); MEAN CORPUSCULAR HEMOGLOBIN 29 pg (27-31); MEAN CORPUSCULAR HGB CONC 34 % (32-36); MEAN CORPUSCULAR VOLUME 84 fL (79.0-98.0); MONOCYTES # (AUTO) 0.3 K/uL (0.0-1.0); MONOCYTES % (AUTO) 5.6 % (1.7-9.3); NEUTROPHILS # (AUTO) 3.1 K/uL (1.8-7.7); NEUTROPHILS % (AUTO) 59.4 % (40.0-70.0); PLATELET COUNT (AUTO) 148 K/uL (130-430); RED BLOOD CELL COUNT(AUTO) 3.98 MIL/uL (4.2-6.2); RED CELL DISTRIBUTION WIDTH 12.3 % (9.0-15.0); WHITE BLOOD COUNT (AUTO) 5.2 K/uL (4.8-10.8)
[2016-08-20 07:30] LABS: ANION GAP 5 (5-15); CALCIUM 9.2 mg/dL (8.4-11.0); CHLORIDE 101 mmol/L (98-107); CREATININE 0.66 mg/dL (0.55-1.30); GLUCOSE 135 mg/dL (70-99); POTASSIUM 3.5 mmol/L (3.5-5.1); SODIUM SERUM 139 mmol/L (136-145); UREA NITROGEN, BLOOD 15 mg/dL (8-21)
[2016-08-20 07:53] VITALS: BP 150/71; PULSE 80; RESP 16; TEMP 96.8; O2SAT 92
--- NOTE | 2016-08-20 08:00 | NUR ---
Am rounds Pt is awake, seems lethargic. Answering simple commands but is lethargic. Pt also has infiltrated IV, not flushing. no swelling noted. Sitter at bedside, Pt repositioned ready for breakfast, will monitor for aspiration precautions since she seems lethargic.
--- NOTE | 2016-08-20 08:39 | NUR ---
Neuro assessment - Dr Tristen mallory. Patients daughter feels pt is not alert as she has been. Pt is unable to feed herself, she keeps falling asleep and is not as verbal as she normally is. On review of medication pt has not had any new medications or the PRN ambien. Bilateral arm strength is equal but weak. Pt is missing her mouth when she tries to put the spoon in her mouth. Bilateral feet both able to push and wiggle toes. Dr Tristen mallory.
[2016-08-20] MEDS: PREGABALIN 25 MG CAPSULE (LYRICA) PO SCH ×3 (10:08→20:58)
[2016-08-20] MEDS: HYDROCHLOROTHIAZIDE 25 MG TABLET (HCTZ) PO SCH (10:10)
--- NOTE | 2016-08-20 10:10 | NUR ---
Rounds Due medications administered.
[2016-08-20] MEDS: METOPROLOL TARTRATE 50 MG TABLET PO SCH ×2 (10:12→20:58)
[2016-08-20] MEDS: risperiDONE 0.25 MG TABLET (RisperDAL) PO SCH ×2 (10:12→20:58)
[2016-08-20] MEDS: DULoxetine HCL 30 MG CAPSULE.DR (CYMBALTA) PO SCH (10:12)
[2016-08-20] MEDS: levETIRAcetam 500 MG TABLET PO SCH ×2 (10:13→20:59)
[2016-08-20] MEDS: BENAZEPRIL HCL 10 MG TABLET (LOTENSIN) PO SCH ×2 (10:13→21:02)
[2016-08-20] MEDS: ATORVASTATIN 20 MG TABLET PO SCH (10:13)
[2016-08-20] MEDS: traMADol HCL HCL 50 MG TABLET (ULTRAM) PO SCH ×3 (10:13→20:59)
[2016-08-20] MEDS: ASPIRIN 81 MG TABLET(ECOTRIN) PO SCH (10:13)
[2016-08-20] MEDS: HEPARIN SODIUM,PORCINE 5000 UNITS/ML VIAL SUBCUT SCH ×2 (10:15→21:05)
[2016-08-20] MEDS: LORazepam 2 MG/ML VIAL IVP PRN (11:07)
--- NOTE | 2016-08-20 11:09 | NUR ---
Ativan IVP administered prior to MRI. Pt transported to MRI by [employer] Tactical tech. Pt seems calm after the Ativan.
--- NOTE | 2016-08-20 12:03 | NUR ---
DC PLANNING Discussed dc planning w Dr Piña in [facility], plans for dc home tomorrow w home health & DME. [facility] has been discussing w & family. Called & spoke w dtr Lisbeth, ph [phone], states agreeable w plan, does not have preference for DME or home health company, whoever Dr Piña recommends. Informed emily Ramirez product planner. Addendum: 08/20/16 at 1533 by Ashley NUNEZ faxed home health referral to [facility] [phone] and DME order for 3in1 Commode to [facility] with noted estimated discharge date of 08/21. DCP will follow up.
[2016-08-20 13:00] VITALS: BP 132/54; PULSE 87; RESP 19; TEMP 97.1; O2SAT 94
--- NOTE | 2016-08-20 13:06 | NUR ---
IV infiltrated. Unable to insert with two attempts. Will ask 2dn RN to assist. Family at bedside made aware.
--- NOTE | 2016-08-20 14:00 | NUR ---
New IV inserted to the left arm 22g. IVF resumed.
--- NOTE | 2016-08-20 15:22 | NUR ---
Rounds Pt is restless. When asked by , pt denies any pain at this time. at bedside. Sitter also at bedside. Bed alarm on.
[2016-08-20 16:00] VITALS: BP 165/71; PULSE 77; RESP 17; TEMP 96.9; O2SAT 92
--- NOTE | 2016-08-20 16:00 | NUR ---
Pt asleep remains at bedside. no distress or pain noted.
--- NOTE | 2016-08-20 17:38 | NUR ---
Dinner at bedside, patient is very sleepy at this time, and not awake enough to eat.
[2016-08-20] MEDS: ACETAMINOPHEN/CODEINE 300 MG-30 MG TABLET PO PRN (18:44)
[2016-08-20 19:30] VITALS: BP 146/70; PULSE 76; RESP 16; TEMP 97.1; O2SAT 93
--- NOTE | 2016-08-20 19:40 | NUR ---
NOTES RECEIVED THE PT FROM THE DAY NURSE PT SLEEPING FAMILY ARE AT THE BEDSIDE.MONITOR IN PLACE AND SHOWS SR,IV TO LT FOREARM INTACT.SEIZURE AND FALL PRECAUTIONS IN PROGRESS. DR SOLANO HERE TO SEE THE PT.CALL LIGHT WITHIN REACH ,SAFETY MEASURES IN PROGRESS.CONTINUE TO MONITOR.
--- NOTE | 2016-08-20 21:16 | NUR ---
NOTES PT AWAKEN AND GIVEN HER PO MEDICATIONS.PT TOLERATED WELL.CONTINUE TO MONITOR.
--- NOTE | 2016-08-20 22:11 | NUR ---
notes pt incontinent of urine.bed bath given,linen changed pt repositioned with pillow support.
--- NOTE | 2016-08-20 23:30 | NUR ---
notes pt sleeping,no distress noted,sitter at the bedside.
[2016-08-21] VITALS (7 sets, daily range): BP systolic 132–169; BP diastolic 55–77; PULSE 72–92; RESP 16–19; TEMP 96.4–98.6; O2SAT 92–94; Ht 154.9 cm; Wt 77.1 kg
--- NOTE | 2016-08-21 01:41 | NUR ---
notes pt remains asleep,sitter at the bedside,
[2016-08-21] MEDS: NACL 0.9% 1,000 ML IV SCH (02:50)
--- NOTE | 2016-08-21 03:28 | NUR ---
notes pt remains asleep,sitter is at the bedside .continue to monitor.
--- NOTE | 2016-08-21 05:32 | NUR ---
notes pt resting quietly,sitter remains at the bedside.continue to monitor.
--- NOTE | 2016-08-21 06:29 | NUR ---
closing notes pt awake ,incontinent of urine,pt cleaned,linen changed. will endorse the care of the pt to the day nurse.sitter remains at the bedside.
[2016-08-21 06:35] LABS: BASOPHILS % (AUTO) 0.3 % (0.0-2.0); EOSINOPHILS # (AUTO) 0.1 K/uL (0.0-0.4); EOSINOPHILS % (AUTO) 1.3 % (0.0-4.0); HEMATOCRIT 31.9 % (36-48); HEMOGLOBIN 10.6 g/dL (12.0-16.0); LYMPHOCYTES # (AUTO) 1.3 K/uL (1.0-5.5); LYMPHOCYTES % (AUTO) 24.7 % (20.5-51.5); MEAN CORPUSCULAR HEMOGLOBIN 29 pg (27-31); MEAN CORPUSCULAR HGB CONC 33 % (32-36); MEAN CORPUSCULAR VOLUME 87 fL (79.0-98.0); MONOCYTES # (AUTO) 0.4 K/uL (0.0-1.0); MONOCYTES % (AUTO) 7.9 % (1.7-9.3); NEUTROPHILS # (AUTO) 3.6 K/uL (1.8-7.7); NEUTROPHILS % (AUTO) 65.8 % (40.0-70.0); PLATELET COUNT (AUTO) 155 K/uL (130-430); RED BLOOD CELL COUNT(AUTO) 3.68 MIL/uL (4.2-6.2); RED CELL DISTRIBUTION WIDTH 12.3 % (9.0-15.0); WHITE BLOOD COUNT (AUTO) 5.4 K/uL (4.8-10.8)
[2016-08-21 06:46] LABS: ANION GAP 8 (5-15); CALCIUM 8.7 mg/dL (8.4-11.0); CHLORIDE 100 mmol/L (98-107); CREATININE 0.63 mg/dL (0.55-1.30); GLUCOSE 147 mg/dL (70-99); POTASSIUM 3.5 mmol/L (3.5-5.1); SODIUM SERUM 137 mmol/L (136-145)
[2016-08-21 07:37] LABS: UREA NITROGEN, BLOOD 18 mg/dL (8-21)
--- NOTE | 2016-08-21 08:20 | NUR ---
AM ROUNDS: PATIENT SLEEPING DURING ROUNDS. AT BEDSIDE. STABLE.
[2016-08-21] MEDS ORDERED: BENA10TA2 PO (08:51)
[2016-08-21] MEDS ORDERED: HYDR50TA3 PO (08:51)
[2016-08-21] MEDS ORDERED: RISP0.253 PO (08:51)
--- NOTE | 2016-08-21 09:07 | NUR ---
md rounds: with orders from dr carolyn diaz home with home health.for pt,rehab,safety evaluation.with e-scripts sent to [facility].
--- NOTE | 2016-08-21 10:19 | NUR ---
DISCHARGE PLANNING Spoke with intake dept at [facility] who stated not contracted. Faxed DME order for 3in1 Commode to [facility] [phone]. Will follow up. Called [facility] spoke with Maria Teresa Molina who requested referral to be re-faxed. confirmed fax number and re-faxed home health referral. Addendum: 08/21/16 at 1145 by Ashley NUNEZ [facility] not contracted. Faxed order for 3in1 commode to [facility] [phone] who confirmed is contracted. Will follow up. Addendum: 08/21/16 at 1213 by Ashley Santa DP Spoke with Nallely in intake dept at [facility] patient accepted and will be called to make visit arrangements. Nallely was given [employer] contract number and will follow up as needed for requested DME.
[2016-08-21] MEDS: BENAZEPRIL HCL 10 MG TABLET (LOTENSIN) PO SCH (10:20)
[2016-08-21] MEDS: levETIRAcetam 500 MG TABLET PO SCH (10:20)
[2016-08-21] MEDS: ATORVASTATIN 20 MG TABLET PO SCH (10:20)
--- NOTE | 2016-08-21 10:20 | NUR ---
MEDS; PATIENT WOKE UP AND ABLE TO GIVE PO MEDS. TOLERATED WELL.
[2016-08-21] MEDS: traMADol HCL HCL 50 MG TABLET (ULTRAM) PO SCH (10:21)
[2016-08-21] MEDS: DULoxetine HCL 30 MG CAPSULE.DR (CYMBALTA) PO SCH (10:21)
[2016-08-21] MEDS: PREGABALIN 25 MG CAPSULE (LYRICA) PO SCH (10:21)
[2016-08-21] MEDS: ASPIRIN 81 MG TABLET(ECOTRIN) PO SCH (10:22)
[2016-08-21] MEDS: METOPROLOL TARTRATE 50 MG TABLET PO SCH (10:22)
[2016-08-21] MEDS: HYDROCHLOROTHIAZIDE 25 MG TABLET (HCTZ) PO SCH (10:22)
[2016-08-21] MEDS: HEPARIN SODIUM,PORCINE 5000 UNITS/ML VIAL SUBCUT SCH (10:23)
--- NOTE | 2016-08-21 12:10 | NUR ---
meal: patient assisted by body line finisher to eat meal. ate fairly. at bedside.
--- NOTE | 2016-08-21 14:00 | NUR ---
rounds: resting. stable.
--- NOTE | 2016-08-21 15:14 | NUR ---
[facility] [phone] pending insurance verification. Addendum: 08/21/16 at 1515 by Ashley NUNEZ Amended: Links added.
--- NOTE | 2016-08-21 16:10 | NUR ---
Discharge Planning FORENSIC NURSE phoned [facility], , and left a message for Carlos who is working on the case to return the call as to if 3in1 commode is authorized.
--- NOTE | 2016-08-21 17:45 | NUR ---
dc notes: transitional care packets given to patient's daughter kenyon charge nurse instructed patient to get the e-prescriptions at [facility] and called it was ready to be meat pickler.iv removed,dry gauze applied and no bleeding noted. accompanied home by and daughter patient in stable condition.
[2016-08-21] MEDS ORDERED: risperiDONE 0.25 MG TABLET (RisperDAL) PO SCH (21:00)
--- NOTE | 2016-08-22 11:06 | NUR ---
DISCHARGE PLANNING Called [facility] [phone] spoke with Carlos in intake dept who stated DME order still in insurance verification. Carlos was made aware of patient discharge and will follow up and return call to [facility] with update. Will continue to follow up. Addendum: 08/22/16 at 1646 by Ashley Santa DP Due to no response from [facility], [facility] spoke with Jesse in admitting who will assist in arranging requested DME commode. Jesse pending signature for delivery arrangements. Jesse will notify [facility] once delivery arrangements have been made. [facility] will follow up. Addendum: 08/23/16 at 1144 by Ashley Santa DP Spoke with Luzmaria in intake dept at [facility] [phone] patient received commode on 10/28/11 by A to [facility]. Luzmaria stated patient eligible for another one after 5yrs.
--- NOTE | 2016-08-22 13:01 | NUR ---
Discharge Follow Up Phone Call Patient speaks Azeri only and now lives with her daughter, Lisbeth. [facility] phoned Lisbeth [phone]. Lisbeth stated that patient is doing better and seems more calm and oriented. However, patient is requiring much more assistance and they are struggling. CORPORATE LAW ASSISTANT asked if [facility] health had called. They had not. Lisbeth requested CORPORATE LAW ASSISTANT phone patient's [facility] customer success advocate and discuss the need for more hours (Karla Cruz [phone]). Lisbeth also stated that only patient's new Rx were at the pharmacy and patient needs refills of existing meds. Patient is switching PCPs. Lisbeth will call Dr Piña regarding new PCP, RX and possible order for a wheelchair. Lisbeth is working on patient's follow up appointments and prefers to make the appointments herself. She has made the appointment with Dr Banegas. CORPORATE LAW ASSISTANT phoned Nallely at [facility], ; they spoke with patient's son and were awaiting a call back. [facility] requested they call Lisbeth. CORPORATE LAW ASSISTANT phoned [facility] case repairer and left a voicemail message requesting a call back. Phoned Lisbeth and she spoke with [facility] and requested a visit 08/26/16. Lisbeth has Social Service contact information. Social Service will continue to follow up. Addendum: 08/23/16 at 1258 by Nellie Maxwell LCSW Follow Up CORPORATE LAW ASSISTANT phoned Lisbeth and left a voicemail message. Updated that DAYO Holley was unable to get commode for patient as she received on 10/28/11 and would not be eligible until 10/27/16. [facility]U provided contact information for [facility]. Explained that MALU left a vm for patient's [facility] CM but had not heard back. Provided Lisbeth with Social Service contact information again. Will continue to follow up. Addendum: 08/23/16 at 1525 by Nellie Maxwell LCSW [facility] received a call from Lisbeth. She requested MALU follow up with [facility] traffic signal supervisor maintenance today. MALU phoned [facility] traffic signal supervisor maintenance Mari Lowery [phone]. The case has been approved but not assigned. Mari will phone Lisbeth on Friday when she has a worker assigned to the case. [facility] phoned Lisbeth and notified her of above.
--- NOTE | 2016-08-26 20:18 | NUR ---
[phone] SPOKE WITH .
== END 2016-08-21 17:45 | disposition home health service (06) | DRG 304 ==
LOC: SED 09:45 → STU 12:07 → SMU 08-20 10:21
PROVIDERS: ADMIT General Practice; ATTEND General Practice
DX: I16.0 Hypertensive urgency (principal); G93.41 Metabolic encephalopathy; E44.0 Moderate protein-calorie malnutrition; G30.9 Alzheimer's disease, unspecified; F02.80 Dementia in other diseases classified elsewhere, unspecified severity, without behavioral disturbance, psychotic disturbance, mood disturbance, and anxiety; D63.8 Anemia in other chronic diseases classified elsewhere; E78.5 Hyperlipidemia, unspecified; F32.9 Major depressive disorder, single episode, unspecified; G40.909 Epilepsy, unspecified, not intractable, without status epilepticus; F22 Delusional disorders; M19.90 Unspecified osteoarthritis, unspecified site; F43.20 Adjustment disorder, unspecified; I25.10 Atherosclerotic heart disease of native coronary artery without angina pectoris; I10 Essential (primary) hypertension; R10.12 Left upper quadrant pain; I35.9 Nonrheumatic aortic valve disorder, unspecified; Z68.32 Body mass index [BMI] 32.0-32.9, adult; Z81.8 Family history of other mental and behavioral disorders; Z95.2 Presence of prosthetic heart valve; Z95.3 Presence of xenogenic heart valve
CPT/HCPCS: 36415; 70450-TC; 70551; 71010; 80048; 80053; 81000-TC; 82607; 82746; 83605; 83735-TC; 83880; 84443-TC; 84484; 85025; 85610-TC; 85651-TC; 85730-TC; 87040-TC; 93005; 93306; 99285; J1644; J2060; J2270; J7030

== ENCOUNTER 2016-08-24 10:22 | Inpatient (IN) | payer OTHER, MEDICAID ==
[~2016-08-24] VITALS: Ht 167.6 cm; Wt 95.3 kg
[~2016-08-24 10:22] MED LIST: ASPI-1063 PO; BENA10TA2 PO; DULO60CA41 PO; HYDR-1189 PO; HYDR50TA3 PO; LEVE500T13 PO; LIP20 PO; LYR50 PO; MECL12.584 PO; METO-442 PO; RISP0.253 PO; TRAM50TA92 PO; TYC3 PO
--- NOTE | 2016-08-24 10:28 | NUR ---
Placed in room 4 . Placed on electronic device monitor, blood pressure machine and pulse oximeter. To gown for exam. Side rails up. Report given to Fletcher SANDOVAL.
--- NOTE | 2016-08-24 10:30 | NUR ---
Pt report received from JAIME Magdaleno. Pt alert, responsive, c/o N/V/D x 2 days. Denies c/o pain or discomfort. at bedside.
[2016-08-24 10:31] VITALS: BP 158/59; PULSE 82; RESP 16; TEMP 98.4; O2SAT 92
--- NOTE | 2016-08-24 10:40 | NUR ---
Dr. Bynum at bedside to assess pt.
[2016-08-24] MEDS ORDERED: LOPERAMIDE HCL 2 MG CAPSULE PO ONE (10:45)
[2016-08-24] MEDS ORDERED: NACL 0.9% 1,000 ML IV ONE (10:45)
[2016-08-24] MEDS ORDERED: ONDANSETRON HCL 4 MG/2 ML VIAL IVP ONE (10:45)
--- NOTE | 2016-08-24 11:30 | NUR ---
Lab at bedside to draw blood specimen.
[2016-08-24 11:35] LABS: BASOPHILS % (AUTO) 0.4 % (0.0-2.0); EOSINOPHILS # (AUTO) 0.1 K/uL (0.0-0.4); EOSINOPHILS % (AUTO) 1.7 % (0.0-4.0); HEMATOCRIT 32.5 % (36-48); HEMOGLOBIN 10.8 g/dL (12.0-16.0); LYMPHOCYTES # (AUTO) 1.1 K/uL (1.0-5.5); LYMPHOCYTES % (AUTO) 20.6 % (20.5-51.5); MEAN CORPUSCULAR HEMOGLOBIN 29 pg (27-31); MEAN CORPUSCULAR HGB CONC 33 % (32-36); MEAN CORPUSCULAR VOLUME 86 fL (79.0-98.0); MONOCYTES # (AUTO) 0.3 K/uL (0.0-1.0); MONOCYTES % (AUTO) 5.8 % (1.7-9.3); NEUTROPHILS # (AUTO) 4.1 K/uL (1.8-7.7); NEUTROPHILS % (AUTO) 71.5 % (40.0-70.0); PLATELET COUNT (AUTO) 226 K/uL (130-430); RED BLOOD CELL COUNT(AUTO) 3.77 MIL/uL (4.2-6.2); RED CELL DISTRIBUTION WIDTH 11.8 % (9.0-15.0); WHITE BLOOD COUNT (AUTO) 5.6 K/uL (4.8-10.8)
[2016-08-24 11:46] LABS: ANION GAP 7 (5-15); CALCIUM 9.4 mg/dL (8.4-11.0); CHLORIDE 102 mmol/L (98-107); CREATININE 1.22 mg/dL (0.55-1.30); GLUCOSE 167 mg/dL (70-99); POTASSIUM 4.4 mmol/L (3.5-5.1); SODIUM SERUM 140 mmol/L (136-145); UREA NITROGEN, BLOOD 39 mg/dL (8-21)
[2016-08-24 11:49] LABS: PROTHROMBIN TIME 10.9 SECS (9.5-12.5)
[2016-08-24 11:51] LABS: ALANINE AMINOTRANSFERASE 46 U/L (12-78); ALBUMIN 3.2 g/dL (3.4-4.8); ASPARTATE AMINOTRANSFERASE 48 U/L (10-37); LIPASE 73 U/L (73-393); TOTAL BILIRUBIN 0.5 mg/dL (0.0-1.0); TOTAL PROTEIN, SERUM 7.3 g/dL (6.4-8.3)
--- NOTE | 2016-08-24 12:00 | NUR ---
Resting calmly, denies c/o pain or discomfort. Denies c/o N/V. at bedside.
--- NOTE | 2016-08-24 12:30 | NUR ---
Bedpan placed beneath pt.
--- NOTE | 2016-08-24 12:45 | NUR ---
Pt removed bedpan and spilled urine on floor. Unable to collect urine sample. Pt gown and bed linens remain clean and dry.
[2016-08-24] MEDS: D5NS 1,000 ML IV SCH (13:15)
[2016-08-24] MEDS ORDERED: ONDANSETRON HCL 4 MG/2 ML VIAL IVP PRN (13:15)
--- NOTE | 2016-08-24 13:30 | NUR ---
Pt alert, responsive, denies c/o pain or discomfort. Updated pt and on POC.
--- NOTE | 2016-08-24 14:10 | NUR ---
Patient will be admitted to care of Dr. Piña. Admitted to Med/Surg unit. Will go to room 132C. Summary report printed. Bedside report given to JAIME Garcia.
--- NOTE | 2016-08-24 14:19 | NUR ---
Admission Note Received patient from ER. Initial Plan of Care discussed-patient verbalized understanding. Family at bedside. Oriented to room, call light, pain management and safety.
[2016-08-24] MEDS ORDERED: POTASSIUM CHLORIDE 10 MEQ TAB.PRT.SR PO PRN (14:30)
[2016-08-24] MEDS ORDERED: MAGNESIUM SULFATE 50 ML IV PRN (14:30)
[2016-08-24] MEDS ORDERED: ACETAMINOPHEN 325 MG TABLET PO PRN (14:30)
[2016-08-24] MEDS ORDERED: DOCUSATE SODIUM 100 MG CAPSULE PO PRN (14:30)
--- NOTE | 2016-08-24 14:49 | NUR ---
Notes Admitting was informed patient's last name is Tyree, first name Danelle as per 's statement.
--- NOTE | 2016-08-24 14:52 | NUR ---
Page to Doctor Wang. Patient needs something to drink/eat per her request. Has not had anything since am.
--- NOTE | 2016-08-24 15:00 | NUR ---
ULTRASOUND AT THIS TIME. PATIENT MED REC. AND PHARMACY UPDATE.
--- NOTE | 2016-08-24 16:17 | NUR ---
PAGE TO DOCTOR FOR DIET ORDER. PRELIMINARY U/S NEGATIVE. PATIENT CRYING.
--- NOTE | 2016-08-24 18:27 | NUR ---
REPEAT IV AFTER PATIENT REMOVED. X3 ATTEMPTS. PATIENT TOLERATED 50% OF CLEAR LIQUID DIET.
[2016-08-24] MEDS: MORPHINE 2 MG/ML INJ. SYRINGE IVP PRN (19:11)
--- NOTE | 2016-08-24 19:50 | NUR ---
initial nursing notes: Patient is awake and is confused as stated by the patient's son at the bedside. Patient is Nepali speaker. Patient is oriented to name only. Reoriented patient to place, time and reason for being in the hospital. Kept bed alarm on for patient's safety. Patient's room is next to the nurses' station.
[2016-08-24 20:19] VITALS: BP 153/57; PULSE 103; RESP 16; TEMP 99.7; O2SAT 95
[2016-08-24] MEDS ORDERED: traZODone HCL 50 MG TABLET (DESYREL) PO PRN (21:00)
[2016-08-24] MEDS ORDERED: ZOLPIDEM TARTRATE 5 MG TABLET PO PRN (21:00)
[2016-08-24] MEDS: OXYBUTYNIN CHLORIDE 5 MG TABLET PO SCH (21:09)
[2016-08-24] MEDS: risperiDONE 0.25 MG TABLET (RisperDAL) PO SCH (21:09)
[2016-08-24] MEDS: ATORVASTATIN 20 MG TABLET PO SCH (21:09)
[2016-08-24] MEDS: MECLIZINE HCL 25 MG TABLET (ANITVERT) PO SCH (21:09)
[2016-08-24] MEDS: METOPROLOL TARTRATE 25 MG TABLET PO SCH (21:10)
[2016-08-24] MEDS: BENAZEPRIL HCL 10 MG TABLET (LOTENSIN) PO SCH (21:10)
[2016-08-24] MEDS: levETIRAcetam 500 MG TABLET PO SCH (21:15)
[2016-08-24] MEDS: DULoxetine HCL 30 MG CAPSULE.DR (CYMBALTA) PO SCH (21:28)
[2016-08-24] MEDS: HEPARIN SODIUM,PORCINE 5000 UNITS/ML VIAL SUBCUT SCH (21:30)
--- NOTE | 2016-08-24 21:50 | NUR ---
nursing rounds: Patient calmly resting in bed. Patient has no respiratory distress.
--- NOTE | 2016-08-24 23:50 | NUR ---
nursing rounds: Patient asleep in bed. Patient has no shortness of breath.
[2016-08-25] VITALS: BP 126/74; PULSE 82; RESP 19; TEMP 98.6; O2SAT 98
--- NOTE | 2016-08-25 01:50 | NUR ---
nursing rounds: Patient calmly resting in bed. Kept siderails up X 3 for patient's safety.
--- NOTE | 2016-08-25 03:50 | NUR ---
nursing rounds: Patient sleeping in bed. Patient has no episode of falls and no injuries.
[2016-08-25 04:00] VITALS: BP 132/68; PULSE 82; RESP 18; TEMP 98.2; O2SAT 97
[2016-08-25] MEDS: D5NS 1,000 ML IV SCH ×3 (04:40→20:30)
--- NOTE | 2016-08-25 05:50 | NUR ---
nursing rounds: Patient calmly resting in bed.
[2016-08-25 06:55] LABS: BASOPHILS % (AUTO) 0.2 % (0.0-2.0); EOSINOPHILS # (AUTO) 0.1 K/uL (0.0-0.4); EOSINOPHILS % (AUTO) 2.2 % (0.0-4.0); HEMATOCRIT 30.1 % (36-48); HEMOGLOBIN 9.9 g/dL (12.0-16.0); LYMPHOCYTES % (AUTO) 37.8 % (20.5-51.5); MEAN CORPUSCULAR HEMOGLOBIN 28 pg (27-31); MEAN CORPUSCULAR HGB CONC 33 % (32-36); MEAN CORPUSCULAR VOLUME 87 fL (79.0-98.0); MONOCYTES # (AUTO) 0.5 K/uL (0.0-1.0); MONOCYTES % (AUTO) 8.8 % (1.7-9.3); NEUTROPHILS # (AUTO) 2.7 K/uL (1.8-7.7); PLATELET COUNT (AUTO) 235 K/uL (130-430); RED BLOOD CELL COUNT(AUTO) 3.48 MIL/uL (4.2-6.2); RED CELL DISTRIBUTION WIDTH 12.2 % (9.0-15.0); WHITE BLOOD COUNT (AUTO) 5.3 K/uL (4.8-10.8)
[2016-08-25 07:18] LABS: ANION GAP 5 (5-15); CALCIUM 8.9 mg/dL (8.4-11.0); CHLORIDE 105 mmol/L (98-107); CREATININE 0.83 mg/dL (0.55-1.30); GLUCOSE 157 mg/dL (70-99); SODIUM SERUM 141 mmol/L (136-145); UREA NITROGEN, BLOOD 18 mg/dL (8-21)
[2016-08-25 08:00] VITALS: BP 112/86; PULSE 110; RESP 22; TEMP 98.5; O2SAT 99
--- NOTE | 2016-08-25 08:00 | NUR ---
OPENING NOTE PATIENT IS AWAKE, CONFUSED, ATTEMPTING TO GET OUT OF BED. REORIENTED PATIENT TO PLACE AND SITUATION. MEDICATED PER ORDERS
--- NOTE | 2016-08-25 08:06 | NUR ---
closing nursing notes: Patient is awake, resting in bed. Patient is in no acute respiratory distress. No episodes of fall and no injuries throughout the shift mgr. Provided nursing report to incoming morning shift nurse, JAIME Peck, at patient's bedside.
[2016-08-25] MEDS ORDERED: SOLIFENACIN SUCCINATE 5 MG TABLET PO SCH (09:00)
[2016-08-25] MEDS: MECLIZINE HCL 25 MG TABLET (ANITVERT) PO SCH ×2 (09:08→20:16)
[2016-08-25] MEDS: DULoxetine HCL 30 MG CAPSULE.DR (CYMBALTA) PO SCH (09:09)
[2016-08-25] MEDS: OXYBUTYNIN CHLORIDE 5 MG TABLET PO SCH ×3 (09:09→20:16)
[2016-08-25] MEDS: MULTIVITAMINS TAB 1 TABLET PO SCH (09:10)
[2016-08-25] MEDS: HYDROCHLOROTHIAZIDE 25 MG TABLET (HCTZ) PO SCH (09:12)
[2016-08-25] MEDS: levETIRAcetam 500 MG TABLET PO SCH ×2 (09:12→20:17)
[2016-08-25] MEDS: BENAZEPRIL HCL 10 MG TABLET (LOTENSIN) PO SCH ×2 (09:13→20:17)
[2016-08-25] MEDS: METOPROLOL TARTRATE 25 MG TABLET PO SCH ×2 (09:14→20:16)
[2016-08-25] MEDS: HEPARIN SODIUM,PORCINE 5000 UNITS/ML VIAL SUBCUT SCH ×2 (09:20→20:20)
--- NOTE | 2016-08-25 09:45 | NUR ---
FAMILY IS AT BEDSIDE REQUESTING AN UPDATE ON PATIENT STATUS
--- NOTE | 2016-08-25 11:00 | NUR ---
dr leon at bedside. orders for uac&s given
[2016-08-25 11:44] LABS: BILIRUBIN,URINE NEGATIVE (NEGATIVE); CLARITY/URINE SL HAZY (CLEAR); COLOR,URINE YELLOW (YELLOW); GLUCOSE,URINE TRACE (NEGATIVE); KETONES,URINE NEGATIVE (NEGATIVE); LEUKOCYTE ESTERASE ,URINE 1+ (NEGATIVE); NITRITE, URINE NEGATIVE (NEGATIVE); PROTEIN URINE NEGATIVE (NEGATIVE)
[2016-08-25 11:57] LABS: BLOOD, URINE TRACE (NEGATIVE)
[2016-08-25 11:58] LABS: BACTERIA,URINE FEW /HPF (None Seen); WBC,URINE 20-50 /HPF (0-3)
[2016-08-25 11:59] LABS: MUCUS,URINE None Seen /LPF (None Seen)
[2016-08-25 12:37] VITALS: BP 140/63; PULSE 83; RESP 18; TEMP 98.5; O2SAT 95
--- NOTE | 2016-08-25 14:05 | NUR ---
PATIENT NOTED TO BE ATTEMPTING TO GET OUT OF BED. STATES SHE NEEDS TO USE RESTROOM. WHEN WE TRIED TO HELP HER TO COMMODE SHE CHANGED HER MIND SAYING SHE DID NOT NEED TO USE THE RESTROOM. PT NOTED TO HAVE PULLED IV OUT, CATHETER WAS LYING IN HER BED.
[2016-08-25 15:36] VITALS: BP 122/75; PULSE 82; RESP 19; TEMP 97.6; O2SAT 95
--- NOTE | 2016-08-25 17:12 | NUR ---
ONE IV ATTEMPTED IN LEFT FOREARM, UNSUCCESSFUL. JAIME LAW AT BEDSIDE ATTEMPTING IV START
[2016-08-25] MEDS ORDERED: cefTRIAXone 1 GM in D5W 50 ML IV SCH (17:45)
[2016-08-25] MEDS ORDERED: LORazepam 2 MG/ML VIAL IM PRN (18:30)
[2016-08-25 20:00] VITALS: BP 129/73; PULSE 85; RESP 20; TEMP 97.9; O2SAT 96
[2016-08-25] MEDS ORDERED: cefTRIAXone 1 GM IVPB PREMIX 50 ML IV ONE (20:00)
--- NOTE | 2016-08-25 20:00 | NUR ---
Initial Notes Received patient resting in bed, awake, alert, confused. Patient is mainly yakut speaking, limited Danish. Patient denies any acute distress or pain at this time. Vital signs stable. Breathing even and unlabored on room air. IV site to left hand #24, patent/clean/dry. Incontinence care provided. Patient repositioned for comfort. Educated patient on use of call light for assistance and fall precautions, patient has poor understanding. Call light in hand, will continue to monitor.
[2016-08-25] MEDS: risperiDONE 0.25 MG TABLET (RisperDAL) PO SCH (20:15)
[2016-08-25] MEDS: ATORVASTATIN 20 MG TABLET PO SCH (20:15)
--- NOTE | 2016-08-25 22:00 | NUR ---
Rounds and Family Call Patient resting in bed with eyes closed. No distress noted, breathing even and unlabored. IV site patent/clean/dry. Patient has frequently attempted to get out of bed unassisted. Fall precautions in place, call light in hand. Will continue to monitor. Received phone call from patient's daughter requesting update. Updated family on how patient is doing.
[2016-08-26] VITALS (7 sets, daily range): BP systolic 115–154; BP diastolic 53–74; PULSE 74–98; RESP 14–20; TEMP 97.5–98.6; O2SAT 94–98
--- NOTE | 2016-08-26 | NUR ---
Rounds Patient resting in bed with eyes closed, easily aroused. Patient denies any acute distress or pain. Breathing even and unlabored. IV site patent/clean/dry. Patient continues to attempt to get out of bed unassisted, confused on/off. Incontinence care provided. Call light in hand, fall precautions in place. Will continue to monitor.
--- NOTE | 2016-08-26 02:00 | NUR ---
Rounds Patient resting in bed with eyes closed, frequently waking and attempting to get out of bed. Patient in no acute distress or pain. Breathing even and unlabored. Incontinence care provided. Call light in hand, fall precautions in place. Will continue to monitor.
[2016-08-26] MEDS: LORazepam 2 MG/ML VIAL IVP PRN ×2 (02:24→18:57)
--- NOTE | 2016-08-26 04:00 | NUR ---
Rounds Patient resting in bed with eyes closed. No acute distress noted, breathing even and unlabored. Call light in hand, will continue to monitor.
[2016-08-26] MEDS ORDERED: RISEDRONATE SODIUM 35 MG TABLET PO SCH (06:00)
--- NOTE | 2016-08-26 06:45 | NUR ---
Closing Notes Patient resting in bed with eyes closed, easily aroused, patient remains confused. Patient denies any distress or pain at this time. Breathing even and unlabored. IV site patent/clean/dry, no S/S infection/infiltration noted. Needs addressed throughout shift. Call light in hand, fall precautions in place. Will continue to monitor for changes and safety, and endorse all patient care/needs to oncoming nurse.
--- NOTE | 2016-08-26 06:57 | NUR ---
Telephone Consent for PICC Obtained telephone consent from patient's daughter Shannan Dupree for PICC line insertion. Verified with JAIME Moody.
[2016-08-26 07:24] LABS: PROTHROMBIN TIME 10.8 SECS (9.5-12.5)
[2016-08-26 07:29] LABS: BASOPHILS % (AUTO) 0.3 % (0.0-2.0); EOSINOPHILS # (AUTO) 0.1 K/uL (0.0-0.4); EOSINOPHILS % (AUTO) 1.8 % (0.0-4.0); HEMATOCRIT 30.4 % (36-48); HEMOGLOBIN 9.9 g/dL (12.0-16.0); LYMPHOCYTES # (AUTO) 2.2 K/uL (1.0-5.5); MEAN CORPUSCULAR HEMOGLOBIN 28 pg (27-31); MEAN CORPUSCULAR HGB CONC 33 % (32-36); MEAN CORPUSCULAR VOLUME 87 fL (79.0-98.0); MONOCYTES # (AUTO) 0.4 K/uL (0.0-1.0); NEUTROPHILS # (AUTO) 2.1 K/uL (1.8-7.7); NEUTROPHILS % (AUTO) 44.9 % (40.0-70.0); PLATELET COUNT (AUTO) 223 K/uL (130-430); RED BLOOD CELL COUNT(AUTO) 3.51 MIL/uL (4.2-6.2); RED CELL DISTRIBUTION WIDTH 12.4 % (9.0-15.0); WHITE BLOOD COUNT (AUTO) 4.8 K/uL (4.8-10.8)
--- NOTE | 2016-08-26 07:30 | NUR ---
OPENING NOTE PATIENT IS VERY LETHARGIC WITH APNEIC EPISODES. 02 SATURATIONS 75-88% ON ROOM AIR. PLACED ON 4LPM NC. O2 SAT NOW 94-95%. PATIENT IS VERY DIFFICULT TO AROUSE. NO SIGNS OF DISTRESS.
[2016-08-26 07:31] LABS: ANION GAP 6 (5-15); CHLORIDE 104 mmol/L (98-107); GLUCOSE 146 mg/dL (70-99); POTASSIUM 4.2 mmol/L (3.5-5.1); SODIUM SERUM 144 mmol/L (136-145); UREA NITROGEN, BLOOD 10 mg/dL (8-21)
--- NOTE | 2016-08-26 09:30 | NUR ---
PICC NURSE AT BEDSIDE. INFORMED HIM OF DC PLAN AND PICC WAS NOT INSERTED.
--- NOTE | 2016-08-26 09:30 | NUR ---
Nutrition Update Rick Scale 18 noted. Pt admitted for intractable N/V. Diet: full liquid BMI: 33.9 kg/m2 RD to follow per nutrition care standards.
--- NOTE | 2016-08-26 10:13 | NUR ---
DISCHARGE PLANNING DC order home w/home health. Faxed order to [phone] requesting to resume home health. Will follow up. Addendum: 08/26/16 at 1656 by Ashley Santa DP Spoke with Jesse at [facility] will resume home health.
--- NOTE | 2016-08-26 10:23 | NUR ---
PATIENT REMAINS VERY LETHARGIC AND DIFFICULT TO AWAKE. O2@3LPM, MILDLY APNEIC BREATHING AND SNORING. VITALS ARE STABLE
--- NOTE | 2016-08-26 11:53 | NUR ---
PATIENT CONTINUES TO SLEEP
--- NOTE | 2016-08-26 12:30 | NUR ---
SPOKE WITH BETHEL, DAUGHTER VIA PHONE WHO ALSO SPOKE WITH HER MOTHER AND STATES SHE WAS IN PAIN. SHE STATES THAT HER MOTHER'S REASON FOR BEING HOSPITALIZED IS FOR THE PAIN AND THAT THE NAUSEA AND VOMITING WERE SECONDARY TO HER EXTREME PAIN. MEDICATED PATIENT WITH 2MG OF MORPHINE PER ORDERS. PATIENT WAS MEDICATED WITH OTHER MEDS LATE DUE TO THE FACT THAT SHE HAD BEEN COMPLETELY OBTUNDED THROUGHOUT THE MORNING.
[2016-08-26] MEDS: DULoxetine HCL 30 MG CAPSULE.DR (CYMBALTA) PO SCH (12:43)
[2016-08-26] MEDS: MECLIZINE HCL 25 MG TABLET (ANITVERT) PO SCH ×2 (12:44→22:54)
[2016-08-26] MEDS: MULTIVITAMINS TAB 1 TABLET PO SCH (12:44)
[2016-08-26] MEDS: MORPHINE 2 MG/ML INJ. SYRINGE IVP PRN (12:44)
[2016-08-26] MEDS: BENAZEPRIL HCL 10 MG TABLET (LOTENSIN) PO SCH ×2 (12:45→22:54)
[2016-08-26] MEDS: HYDROCHLOROTHIAZIDE 25 MG TABLET (HCTZ) PO SCH (12:45)
[2016-08-26] MEDS: levETIRAcetam 500 MG TABLET PO SCH ×2 (12:45→22:54)
[2016-08-26] MEDS: OXYBUTYNIN CHLORIDE 5 MG TABLET PO SCH ×3 (12:45→22:58)
[2016-08-26] MEDS: METOPROLOL TARTRATE 25 MG TABLET PO SCH ×2 (12:46→22:55)
[2016-08-26] MEDS: HEPARIN SODIUM,PORCINE 5000 UNITS/ML VIAL SUBCUT SCH ×2 (12:50→23:00)
--- NOTE | 2016-08-26 13:42 | NUR ---
DC PLANNING Order to dc home w home health to resume services. Pt a readmit. Called & spoke w dtr Lisbeth, ph [phone], states agreeable w plan to dc home w home health, wants to cont w same Home Health. States pt still lives w herself & pt's in 1 story house. Pt has now been requiring mod assist, cannot ambulate on own. & herself assist pt along w pt's fww when ambulating. Has FWW & cammode, would like a WC. Discussed SNF, states is not ready for SNF that wants to take mother home w Home Health. She & pt's assist w ADL's. Explained that SNF could be short term, does not have to be intermediate. States would like to have list of SNF's that she can look over & discuss w pt's son for future, does not want snf @ this time. States has caregiver thru [facility], that new oil field caser assigned waiting for pt to go home so can be evaluated again. States to leave list of snf's w nurse & will get when comes to curing pickling packer pt in evening. Left list of SNF's w nurse to give w dc instructions. Called & spoke w Dr Piña regarding request for WC, states pt has home health that can arrange for wc w PCP. Called & informed Lisbeth, [facility] will f/u w pcp for wc[facility] she has already received information regarding [facility] for medical equipment.
--- NOTE | 2016-08-26 14:28 | NUR ---
PATIENT UP TO COMMODE TO URINATE. PLACED BACK IN BED AND REPOSITIONED.
--- NOTE | 2016-08-26 16:10 | NUR ---
SPOKE WITH DR LEWIS WHO STATED HE WAS NOT GOING TO BE ABLE TO WRITE SCRIPS FOR AMBIEN AND PAIN MEDICATION THAT THE DAUGHTER WANTED BECAUSE THEY NEEDED TO BE IN WRITING IN TRIPLICATE. LEFT V MAIL WITH DAUGHTER THAT MOTHER IS READY FOR DC AND THAT WE WOULD DISCUSS PRESCRIPTIONS IN PERSON.
--- NOTE | 2016-08-26 18:09 | NUR ---
SPOKE WITH DAUGHTER BETHEL WHO WILL BE HERE AROUND 1900 TO INVESTMENT COUNSELOR PATIENT. EXPLAINED THAT WE WOULD NOT HAVE PRESCRIPTIONS FOR HER AND TO FOLLOW UP WITH ANOTHER MD AT OR ER OR BY APPOINTMENT. BETHEL VERBALIZED UNDERSTANDING. PATIENT IS VERY AGITATED AND TRYING TO AMBULATE. AMBULATED WITH ASSIST TO NURSES' STATION PATIENT THOUGHT SHE COULD SEE BETHEL AT NURSES' STATION. ONCE SHE CONFIRMED THAT HER DAUGHTER WAS NOT HERE SHE WALKED BACK TO HR ROOM.
--- NOTE | 2016-08-26 18:12 | NUR ---
PATIENT IS NOW REQUIRING BLACK PULLER OBSERVATION
--- NOTE | 2016-08-26 19:40 | NUR ---
initial nursing notes: Patient is asleep. Patient has no shortness of breath. Patient's daughter stated that they cannot take the patient home since they would not know how to take care of the patient once the patient gets agitated. Patient's daughter also stated that they would like for the patient to stay in the hospital until the homehealth nurse is available to take care of the patient.
[2016-08-26] MEDS ORDERED: cefTRIAXone 1 GM in D5W 50 ML IV SCH (21:00)
--- NOTE | 2016-08-26 21:40 | NUR ---
nursing rounds: Dr. Piña made a telephone order to hold the patient's discharge. Patient is awake. Patient calmly resting in bed.
[2016-08-26] MEDS: ATORVASTATIN 20 MG TABLET PO SCH (22:54)
[2016-08-26] MEDS: risperiDONE 0.25 MG TABLET (RisperDAL) PO SCH (22:57)
[2016-08-26] MEDS: D5NS 1,000 ML IV SCH (23:04)
--- NOTE | 2016-08-26 23:40 | NUR ---
nursing rounds: Patient sleeping in bed. Kept siderails up X 3 for patient's safety.
[2016-08-27 01:21] VITALS: BP 129/65; PULSE 89; RESP 17; TEMP 98.7; O2SAT 94
--- NOTE | 2016-08-27 01:40 | NUR ---
nursing rounds: Patient asleep in bed. Patient has no shortness of breath.
--- NOTE | 2016-08-27 03:40 | NUR ---
nursing rounds: Patient sleeping in bed. Patient has no episode of falls and no injuries.
[2016-08-27 04:00] VITALS: BP 147/67; PULSE 85; RESP 19; TEMP 98; O2SAT 96
--- NOTE | 2016-08-27 05:40 | NUR ---
nursing rounds: Patient calmly resting in bed. Patient has no respiratory distress.
[2016-08-27 07:04] LABS: BASOPHILS % (AUTO) 0.3 % (0.0-2.0); EOSINOPHILS # (AUTO) 0.1 K/uL (0.0-0.4); EOSINOPHILS % (AUTO) 2.2 % (0.0-4.0); HEMATOCRIT 32.9 % (36-48); HEMOGLOBIN 10.8 g/dL (12.0-16.0); LYMPHOCYTES # (AUTO) 2.3 K/uL (1.0-5.5); LYMPHOCYTES % (AUTO) 48.7 % (20.5-51.5); MEAN CORPUSCULAR HEMOGLOBIN 29 pg (27-31); MEAN CORPUSCULAR HGB CONC 33 % (32-36); MEAN CORPUSCULAR VOLUME 88 fL (79.0-98.0); MONOCYTES # (AUTO) 0.3 K/uL (0.0-1.0); MONOCYTES % (AUTO) 7.4 % (1.7-9.3); NEUTROPHILS # (AUTO) 1.9 K/uL (1.8-7.7); NEUTROPHILS % (AUTO) 41.4 % (40.0-70.0); PLATELET COUNT (AUTO) 238 K/uL (130-430); RED BLOOD CELL COUNT(AUTO) 3.76 MIL/uL (4.2-6.2); RED CELL DISTRIBUTION WIDTH 12.1 % (9.0-15.0); WHITE BLOOD COUNT (AUTO) 4.6 K/uL (4.8-10.8)
[2016-08-27 07:12] LABS: ANION GAP 3 (5-15); CHLORIDE 104 mmol/L (98-107); CREATININE 0.73 mg/dL (0.55-1.30); GLUCOSE 142 mg/dL (70-99); POTASSIUM 4.1 mmol/L (3.5-5.1); SODIUM SERUM 142 mmol/L (136-145); UREA NITROGEN, BLOOD 11 mg/dL (8-21)
--- NOTE | 2016-08-27 07:20 | NUR ---
PATIENT'S DAUGHTER AND SON ARRIVED TO TAKE PATIENT HOME. DR LEWIS PAGED FOR PAIN AND AMBIEN PRESCRIPTIONS HE RETURNED THE PAGE AND SAID HE WOULD BE IN A LITTLE LATER. FAMILY INFORMED OF THIS BUT STILL INSISTED ON GOING HOME NOW. REMOVED IV CATHETER AND PRESSURE DRESSING APPLIED. TOOK PATIENT OUT OF HOSPITAL VIA WHEELCHAIR AT WHICH TIME PATIENT'S SON WALKED THE PATIENT TOWARD THE ER STATING THEY WOULD BE SEEKING A PRESCRIPTION THROUGH THE ER DOCTOR. AGAIN ASKED THE FAMILY IF THEY WOULD LIKE TO WAIT FOR DR LEWIS AND THEY STATED THAT THEY DID NOT WANT TO WAIT SEVERAL HOURS AND PREFERRED TO UTILIZE THE EMERGENCY ROOM.
--- NOTE | 2016-08-27 07:41 | NUR ---
closing nursing notes: Patient is awake, resting in bed. Patient is in no acute respiratory distress. No episodes of fall and no injuries throughout the electrical instrument technician. Provided nursing report to incoming morning shift nurse, JAIME Peck, at patient's bedside.
--- NOTE | 2016-09-02 16:01 | NUR ---
Discharge Follow Up Phone Call: [facility] placed call to pt's son, Javed, ([phone]); Javed states that the pt is doing alright at home. Javed states that [facility] has been coming out working physical therapy with pt. Javed states that they did get pt's prescriptions filled. Javed reports that they have made an appointment with pt's PCP but are working on how to get pt to the appointment since she is not walking well. Pt's son has no concerns/needs at this time and denied the need for further follow up calls.
== END 2016-08-27 08:30 | disposition home health service (06) | DRG 392 ==
LOC: SED 10:22 → SMU 13:12 → MERGE 13:12 → SMU 14:10
PROVIDERS: ADMIT General Practice; ATTEND General Practice
DX: K52.9 Noninfective gastroenteritis and colitis, unspecified (principal); N39.0 Urinary tract infection, site not specified; E44.0 Moderate protein-calorie malnutrition; R26.81 Unsteadiness on feet; I10 Essential (primary) hypertension; G30.9 Alzheimer's disease, unspecified; I25.10 Atherosclerotic heart disease of native coronary artery without angina pectoris; F29 Unspecified psychosis not due to a substance or known physiological condition; F02.80 Dementia in other diseases classified elsewhere, unspecified severity, without behavioral disturbance, psychotic disturbance, mood disturbance, and anxiety; F32.9 Major depressive disorder, single episode, unspecified; Z95.5 Presence of coronary angioplasty implant and graft
CPT/HCPCS: 36415; 71010; 76700-TC; 80048; 80053; 81000-TC; 82150-TC; 83605; 83690-TC; 83735-TC; 85025; 85610-TC; 85730-TC; 87040-TC; 87086; 87186-TC; 93005; 96361; 96374; 99285; J0696; J1644; J2060; J2270; J2405; J7030; J7042; J7060; J8597

== ENCOUNTER 2016-08-27 08:34 | Emergency (ER) | payer OTHER, MEDICAID ==
[~2016-08-27] VITALS: Ht 160 cm; Wt 77.1 kg
[2016-08-27 08:40] VITALS: BP 115/40; PULSE 115; RESP 16; TEMP 98; O2SAT 97
--- NOTE | 2016-08-27 08:45 | NUR ---
Arrived via WC from med-surg. Patient is confused does not speak korean. States that she brought her to ER for outpatient pain management immediantly after discharge from Med-surg. Patient to ER bed 7 to gown for evaluation. Side rails up. Report given to Ayla SANDOVAL.
--- NOTE | 2016-08-27 09:00 | NUR ---
ER Dr. Ayala at bedside examining patient.
--- NOTE | 2016-08-27 09:09 | NUR ---
Per Hellen RN Rx for Ambien and pain medications were not written. Thus the patient came immediantly to ER.
--- NOTE | 2016-08-27 11:00 | NUR ---
Dr. Piña at bedside discussing home care for patient. Rx given directly to family. Family left with Rx did not wait for discharge papers.
== END 2016-08-27 11:00 | disposition left against medical advice (07) ==
LOC: MERGE 08:34 → SED 08:34
DX: G89.29 Other chronic pain (principal); R52 Pain, unspecified; E11.9 Type 2 diabetes mellitus without complications; I10 Essential (primary) hypertension; Z86.79 Personal history of other diseases of the circulatory system
CPT/HCPCS: 99283

== ENCOUNTER 2017-01-20 01:08 | Emergency (ER) | payer OTHER, MEDICAID ==
[~2017-01-20] VITALS: Ht 160 cm; Wt 77.1 kg
[2017-01-20 01:10] VITALS: BP_SYST 148
[2017-01-20] MEDS ORDERED: KETOROLAC TROMETHAMINE 60 MG/2 ML VIAL IM ONE (01:45)
[2017-01-20 03:41] VITALS: BP_SYST 140
== END 2017-01-20 03:41 | disposition home or self-care (01) ==
LOC: SED 01:08
DX: R10.9 Unspecified abdominal pain (principal); I10 Essential (primary) hypertension; Z79.82 Long term (current) use of aspirin; Z79.899 Other long term (current) drug therapy
CPT/HCPCS: 76857; 96372; 99284; J1885